=== PATIENT | female | born 1975 | race Caucasian/White ===

== ENCOUNTER 2018-08-21 08:36 | Emergency (ER) | payer OTHER ==
[~2018-08-21] VITALS: Ht 167.6 cm; Wt 104.3 kg
[2018-08-21] MEDS ORDERED: ESCI10 PO (09:45)
[2018-08-21] MEDS ORDERED: LORA1SY PO (09:45)
[2018-08-21] MEDS ORDERED: Percocet 5-3251 EACH PO (10:21)
== END 2018-08-21 10:37 | disposition home or self-care (01) ==
LOC: ER 08:36
DX: S42.202A Unspecified fracture of upper end of left humerus, initial encounter for closed fracture (principal); Z88.5 Allergy status to narcotic agent; Z87.891 Personal history of nicotine dependence; W01.0XXA Fall on same level from slipping, tripping and stumbling without subsequent striking against object, initial encounter
CPT/HCPCS: 29105; 73030; 73080; 99283-25

== ENCOUNTER 2019-04-08 06:19 | Day surgery (SDC) | payer OTHER ==
[~2019-04-08] VITALS: Ht 167.6 cm; Wt 103.9 kg
[~2019-04-08 06:19] MED LIST: ALEVE220 MG PO; Accuneb0.63 MG/3 INH; ESCI10 PO; ESCI20 PO; Flonase 0.05% N16 GM; LORA1SY PO; Loratadine10 MG PO; ONE DAILY COMP1 EACH PO; Percocet 5-3251 EACH PO; VITAMIN D31000 UNIT PO
--- NOTE | 2019-04-08 08:28 | NUR ---
04/08/19 0828 Ulysses Ruiz INTRASCALING BLOCK DONE IN OR WITHOUT DIFFICULTY.
== END 2019-04-08 10:36 | disposition home or self-care (01) ==
LOC: ORSCSDS 06:19
PROVIDERS: Orthopaedic Surgery
PROC: 0RNK4ZZ Release Left Shoulder Joint, Percutaneous Endoscopic Approach (ICD-10-PCS; principal; 2019-04-08 07:30)
PROC: 0LS24ZZ Reposition Left Shoulder Tendon, Percutaneous Endoscopic Approach (ICD-10-PCS; principal; 2019-04-08 07:30)
PROC: 0LQ24ZZ Repair Left Shoulder Tendon, Percutaneous Endoscopic Approach (ICD-10-PCS; principal; 2019-04-08 07:30)
PROC: 0RBK4ZZ Excision of Left Shoulder Joint, Percutaneous Endoscopic Approach (ICD-10-PCS; principal; 2019-04-08 07:30)
DX: M75.112 Incomplete rotator cuff tear or rupture of left shoulder, not specified as traumatic (principal); M75.22 Bicipital tendinitis, left shoulder; M24.612 Ankylosis, left shoulder; J45.909 Unspecified asthma, uncomplicated; K21.9 Gastro-esophageal reflux disease without esophagitis; Z79.899 Other long term (current) drug therapy; E66.01 Morbid (severe) obesity due to excess calories; Z68.36 Body mass index [BMI] 36.0-36.9, adult
CPT/HCPCS: C1713; J0171; J0690; J1100; J2250; J2405; J2704; J2710; J3010; J7120

== ENCOUNTER → 2019-06-26 | Outpatient (CLI) | payer OTHER ==
[2019-06-26 17:12] LABS: BASOPHILS ABSOLUTE AUTO 0.06 K/mm3 (0.00-0.23); BASOPHILS PERCENT AUTO 1 % (0-2); EOSINOPHILS ABSOLUTE AUTO 0.37 K/mm3 (0.00-0.68); EOSINOPHILS PERCENT AUTO 6 % (0-6); Hematocrit 39.7 % (33.0-51.0); Hemoglobin 13.3 g/dL (11.5-16.0); IMMATURE GRAN ABSOLUTE AUTO 0.01 K/mm3 (0.00-0.10); IMMATURE GRAN PERCENT AUTO 0 % (0-1); LYMPHOCYTES ABSOLUTE AUTO 2.13 K/mm3 (0.84-5.20); LYMPHOCYTES PERCENT AUTO 34 % (21-46); MONOCYTES ABSOLUTE AUTO 0.62 K/mm3 (0.16-1.47); MONOCYTES PERCENT AUTO 10 % (4-13); Mean Corpuscular HGB 32.3 pg (26.0-34.0); Mean Corpuscular HGB Conc 33.5 g/dL (31.5-36.5); Mean Corpuscular Volume 96 fL (80-100); Mean Platelet Volume 10.5 fL (9.1-12.4); NEUTROPHILS ABSOLUTE AUTO 3.02 K/mm3 (1.96-9.15); NEUTROPHILS PERCENT AUTO 49 % (41-73); Platelet Count 269 K/mm3 (150-400); RDW Coefficient Variation 12.3 % (11.7-14.2); RDW Standard Deviation 43.7 fL (35.1-46.3); Red Blood Cell Count 4.12 M/mm3 (3.80-5.20); White Blood Cell Count 6.21 K/mm3 (4.00-11.30)
[2019-06-26 17:36] LABS: Alanine Aminotransfer (ALT/SGP 25 U/L (12-78); Albumin, Blood 3.6 g/dL (3.4-5.0); Albumin/Globulin Ratio 1.2 (0.8-1.8); Alk Phos 73 U/L (50-136); Anion Gap 6 mmol/L (6-16); Aspartate Aminotrans (AST/SGOT 12 U/L (12-37); Bilirubin, Total 0.2 mg/dL (0.1-1.0); Blood Urea Nitrogen 15 mg/dL (8-24); Bun/Creatinine Ratio 22.7 (12.0-20.0); CO2, Blood 27 mmol/L (21-32); Calcium, Blood 8.7 mg/dL (8.5-10.1); Chloride, Blood 109 mmol/L (98-108); Creatinine, Blood 0.66 mg/dL (0.40-1.00); Globulin, Blood 3.1 g/dL (2.2-4.0); Glomerular Filtration Rate >60 (60-); Glucose, Blood 94 mg/dL (70-99); Potassium, Blood 3.8 mmol/L (3.5-5.5); Sodium, Blood 142 mmol/L (136-145); Thyroxine (T4) 9.2 ug/dL (4.8-13.9); Total Protein, Blood 6.7 g/dL (6.4-8.2)
== END ==
LOC: LAB 16:40 → LAB SHORT 16:40
PROVIDERS: Physician Assistant
DX: R53.83 Other fatigue (principal)
CPT/HCPCS: 80053; 84436; 84443; 85025

== ENCOUNTER → 2019-08-23 | Outpatient (CLI) | payer OTHER | LOC: LAB SHORT 15:40 → LAB UCHC 15:40 | DX: N89.8 Other specified noninflammatory disorders of vagina (principal) | CPT/HCPCS: 87070; 87077; 87186; 87205 ==

== ENCOUNTER → 2019-09-08 | Outpatient (CLI) | payer SELFPAY | LOC: LAB 10:25 → LAB SHORT 10:25 | DX: A49.02 Methicillin resistant Staphylococcus aureus infection, unspecified site (principal) | CPT/HCPCS: 87070; 87077; 87186; 87205 ==

== ENCOUNTER → 2019-10-01 | Outpatient (CLI) | payer OTHER | END | disposition home or self-care (01) | LOC: LAB SHORT 11:41 → LAB UCHC 11:41 → EDSTATUS 15:59 | DX: B37.3 Candidiasis of vulva and vagina (principal) | CPT/HCPCS: 87070; 87205 ==

== ENCOUNTER → 2020-02-29 | Outpatient (CLI) | payer OTHER | END | disposition home or self-care (01) | LOC: LAB 09:47 → LAB SHORT 09:47 | DX: N89.8 Other specified noninflammatory disorders of vagina (principal); Z86.14 Personal history of Methicillin resistant Staphylococcus aureus infection | CPT/HCPCS: 87070; 87081; 87205 ==

== ENCOUNTER → 2020-10-20 | Outpatient (CLI) | payer OTHER ==
[2020-10-20 10:10] LABS: BASOPHILS ABSOLUTE AUTO 0.06 K/mm3 (0.00-0.23); BASOPHILS PERCENT AUTO 1 % (0-2); EOSINOPHILS ABSOLUTE AUTO 0.38 K/mm3 (0.00-0.68); EOSINOPHILS PERCENT AUTO 6 % (0-6); Hematocrit 41.9 % (33.0-51.0); Hemoglobin 14.2 g/dL (11.5-16.0); IMMATURE GRAN ABSOLUTE AUTO 0.01 K/mm3 (0.00-0.10); IMMATURE GRAN PERCENT AUTO 0 % (0-1); LYMPHOCYTES ABSOLUTE AUTO 2.01 K/mm3 (0.84-5.20); LYMPHOCYTES PERCENT AUTO 33 % (21-46); MONOCYTES PERCENT AUTO 7 % (4-13); Mean Corpuscular HGB 31.8 pg (26.0-34.0); Mean Corpuscular HGB Conc 33.9 g/dL (31.5-36.5); Mean Corpuscular Volume 94 fL (80-100); Mean Platelet Volume 9.9 fL (9.1-12.4); NEUTROPHILS ABSOLUTE AUTO 3.16 K/mm3 (1.96-9.15); NEUTROPHILS PERCENT AUTO 53 % (41-73); Platelet Count 292 K/mm3 (150-400); RDW Coefficient Variation 13.2 % (11.7-14.2); RDW Standard Deviation 45.4 fL (35.1-46.3); Red Blood Cell Count 4.46 M/mm3 (3.80-5.20); White Blood Cell Count 6.02 K/mm3 (4.00-11.30)
[2020-10-20 10:30] LABS: Alanine Aminotransfer (ALT/SGP 36 U/L (12-78); Albumin, Blood 3.6 g/dL (3.4-5.0); Albumin/Globulin Ratio 1.1 (0.8-1.8); Alk Phos 81 U/L (50-136); Anion Gap 8 mmol/L (6-16); Aspartate Aminotrans (AST/SGOT 16 U/L (12-37); Bilirubin, Total 0.5 mg/dL (0.1-1.0); Blood Urea Nitrogen 7 mg/dL (8-24); Bun/Creatinine Ratio 11.3 (12.0-20.0); CO2, Blood 26 mmol/L (21-32); Calcium, Blood 8.4 mg/dL (8.5-10.1); Chloride, Blood 106 mmol/L (98-108); Creatinine, Blood 0.62 mg/dL (0.40-1.00); Globulin, Blood 3.4 g/dL (2.2-4.0); Glomerular Filtration Rate >60 (60-); Glucose, Blood 87 mg/dL (70-99); Potassium, Blood 4.3 mmol/L (3.5-5.5); Sodium, Blood 140 mmol/L (136-145)
== END | disposition home or self-care (01) ==
LOC: LAB SHORT 09:20 → LAB 09:20
PROVIDERS: Physician Assistant
DX: R10.9 Unspecified abdominal pain (principal)
CPT/HCPCS: 80053; 83690; 85025

== ENCOUNTER 2022-01-04 15:22 | Emergency (ER) | payer OTHER ==
[~2022-01-04] VITALS: Ht 177.8 cm; Wt 77.1 kg
== END 2022-01-04 19:00 | disposition home or self-care (01) ==
LOC: ER 15:22
DX: M25.522 Pain in left elbow (principal); M25.512 Pain in left shoulder; M79.632 Pain in left forearm; Z87.891 Personal history of nicotine dependence; Z88.5 Allergy status to narcotic agent; Z88.8 Allergy status to other drugs, medicaments and biological substances; Z79.899 Other long term (current) drug therapy; W01.0XXA Fall on same level from slipping, tripping and stumbling without subsequent striking against object, initial encounter; Y92.9 Unspecified place or not applicable
CPT/HCPCS: 73060; 73080; 73090; 99283-25; A9270

== ENCOUNTER 2022-02-28 09:04 | Day surgery (SDC) | payer OTHER | END 2022-02-28 23:56 | disposition home or self-care (01) | LOC: CT 09:04 | DX: I25.10 Atherosclerotic heart disease of native coronary artery without angina pectoris (principal); I25.84 Coronary atherosclerosis due to calcified coronary lesion; I10 Essential (primary) hypertension; E78.5 Hyperlipidemia, unspecified; E66.9 Obesity, unspecified; G47.33 Obstructive sleep apnea (adult) (pediatric); Z88.5 Allergy status to narcotic agent; Z88.2 Allergy status to sulfonamides; Z88.8 Allergy status to other drugs, medicaments and biological substances; Z68.38 Body mass index [BMI] 38.0-38.9, adult | CPT/HCPCS: 75574; Q9967 ==

== ENCOUNTER → 2022-07-25 | Outpatient (CLI) | payer OTHER | END | disposition home or self-care (01) | LOC: LAB SHORT 14:26 | DX: N83.202 Unspecified ovarian cyst, left side (principal) | CPT/HCPCS: 87086 ==

== ENCOUNTER 2022-09-13 06:08 | Day surgery (SDC) | payer OTHER ==
[~2022-09-13] VITALS: Ht 167.6 cm; Wt 105.0 kg
[~2022-09-13 06:08] MED LIST changes: +LORA10ER PO; -Loratadine10 MG PO
[2022-09-13] MEDS ORDERED: ASPI81CH PO (07:03)
[2022-09-13] MEDS ORDERED: ATOR80 PO (07:04)
[2022-09-13] MEDS ORDERED: Bisoprolol Fumar5 MG PO (07:05)
[2022-09-13] MEDS ORDERED: Cyclobenzaprine5 MG PO (07:05)
[2022-09-13] MEDS ORDERED: GABA300 PO (07:06)
[2022-09-13] MEDS ORDERED: Atarax10 MG PO (07:07)
[2022-09-13] MEDS ORDERED: LOSA50 PO (07:07)
[2022-09-13] MEDS ORDERED: ONDA4 PO (07:08)
[2022-09-13] MEDS ORDERED: ERGO50000 PO (07:12)
--- NOTE | 2022-09-13 09:02 | NUR ---
pt to recovery room from lab. pt report received from poli stuart. pt [id number]. pt sitting up in recliner eating breakfast. pt given coffee and ice water per request. call light w/in reach.
--- NOTE | 2022-09-13 10:11 | NUR ---
PT FINISHED EATING BREAKFAST. PT GIVEN ANOTHER COFFEE PER REQUEST. 2cc REMOVEDF ROM TR BAND. PT AMBULATED TO RESTROOM W/O ASSISTANCE AND IS NOW BACK IN RECLINER.
--- NOTE | 2022-09-13 10:27 | NUR ---
2cc REMOVED FROM TR BAND. NO BLEEDING NOTED. SITE AROUND BAND SOFT AND NON-TENDER.
--- NOTE | 2022-09-13 10:33 | NUR ---
TR BAND FULLY DEFLATED. NO BLEEDING NOTED. SITE SOFT AND NON-TENDER PER PT
--- NOTE | 2022-09-13 11:26 | NUR ---
PT GIVEN DC INSTRRUCTIONS AND VERBALIZED UNDERSTANDING. IV OUT. PT CHANGED INTO CLOTHES. CLOTH DOT PLACED W/ ARM BOARD AND SLING APPLIED. NO BLEEDING NOTED, SITE SOFT AND NON-TENDER PER PT. PT TAKEN TO LBY VIA WC. TO DRIVE PT HOME.
== END 2022-09-13 11:42 | disposition home or self-care (01) ==
LOC: MHTC 06:08
DX: I25.10 Atherosclerotic heart disease of native coronary artery without angina pectoris (principal); E78.5 Hyperlipidemia, unspecified; E66.9 Obesity, unspecified; I47.1 Supraventricular tachycardia; Z88.1 Allergy status to other antibiotic agents; Z88.5 Allergy status to narcotic agent; Z88.8 Allergy status to other drugs, medicaments and biological substances; Z79.82 Long term (current) use of aspirin
CPT/HCPCS: 76937; 93454; 99152; A9270; C1769; C1887; C1894; J1644; J2250; J3010; J7030; J7050; Q9967